=== PATIENT | female | born 1935 | race Caucasian/White ===

== ENCOUNTER 2022-12-21 14:51 | Inpatient (IN) | payer MEDICARE, OTHER ==
[~2022-12-21] VITALS: Ht 170.2 cm; Wt 68.2 kg
[2022-12-21 16:26] LABS: BASOPHILS % (AUTO) 0.7 % (0.0-2.0); EOSINOPHILS # (AUTO) 0.2 K/uL (0.0-0.7); EOSINOPHILS % (AUTO) 3.1 % (0.0-6.0); HEMATOCRIT 41 % (33-45); HEMOGLOBIN 13.7 g/dL (11.5-14.8); LYMPHOCYTES # (AUTO) 1.4 K/uL (0.8-4.8); LYMPHOCYTES % (AUTO) 24.9 % (20.0-44.0); MEAN CORPUSCULAR HEMOGLOBIN 32 PG (26.0-33.0); MEAN CORPUSCULAR HGB CONC 34 g/dl (31.0-36.0); MEAN CORPUSCULAR VOLUME 96 fL (82-100); MONOCYTES # (AUTO) 0.5 K/uL (0.1-1.30); MONOCYTES % (AUTO) 8.9 % (2.0-12.0); NEUTROPHILS # (AUTO) 3.6 K/uL (1.8-8.9); NEUTROPHILS % (AUTO) 62.4 % (43.0-81.0); PLATELET COUNT (AUTO) 419 K/uL (150-450); RED BLOOD CELL COUNT(AUTO) 4.23 MIL/uL (4.0-5.2); RED CELL DISTRIBUTION WIDTH 13.3 % (11.5-15.0); WHITE BLOOD COUNT (AUTO) 5.8 K/uL (4.3-11.0)
[2022-12-21 16:46] LABS: SERUM AMMONIA 2 umol/L (11-32)
[2022-12-21 16:47] LABS: CALCIUM, SERUM 9.9 mg/dL (8.5-10.1); CARBON DIOXIDE 27 mmol/L (21-32); CHLORIDE 105 mmol/L (98-107); CREATININE 0.9 mg/dL (0.6-1.3); GLUCOSE 103 mg/dL (74-106); POTASSIUM 4.1 mmol/L (3.5-5.1); SODIUM SERUM 140 mmol/L (136-145); UREA NITROGEN, BLOOD 26 mg/dL (7-18)
[2022-12-21] MEDS ORDERED: QUET25TA PO ×2 (16:52)
[2022-12-21] MEDS ORDERED: ACET-2605 PO (16:52)
[2022-12-21] MEDS ORDERED: ACET-868 PO (16:52)
[2022-12-21] MEDS ORDERED: SENN-261 PO (16:52)
[2022-12-21] MEDS ORDERED: BISA10SU11 RC (16:52)
[2022-12-21] MEDS ORDERED: MAGN400O6 PO (16:52)
[2022-12-21 16:53] LABS: ALANINE AMINOTRANSFERASE 29 U/L (12-78); ALBUMIN 3.8 g/dL (3.4-5.0); ALKALINE PHOSPHATASE 114 U/L (46-116); ASPARTATE AMINOTRANSFERASE 19 U/L (15-37); BILIRUBIN,DIRECT 0.1 mg/dL (0.0-0.2); BILIRUBIN,TOTAL 0.3 mg/dL (0.2-1.0); TOTAL PROTEIN, SERUM 7.8 g/dL (6.4-8.2)
[2022-12-21 16:54] LABS: ALCOHOL, BLOOD < 10 mg/dL (0-10)
[2022-12-21] MEDS ORDERED: ACETAMINOPHEN 325 MG TABLET PO PRN (18:30)
[2022-12-21] MEDS ORDERED: BISACODYL SUPP (10 MG) 10 MG/SUPP.RECT SUPP.RECT RC PRN (18:30)
[2022-12-21] MEDS ORDERED: ENOXAPARIN SODIUM 30 MG/0.3 ML DISP.SYRIN SQ SCH (18:30)
[2022-12-21] MEDS ORDERED: ONDANSETRON HCL/PF 4 MG/2 ML VIAL IVP PRN (18:30)
[2022-12-21] MEDS ORDERED: HYDROCODONE/APAP 5/325MG TABLET PO PRN (18:30)
[2022-12-21] MEDS ORDERED: Z GUARD REMEDY 4 OZ OINT TP PRN (18:30)
[2022-12-21] MEDS ORDERED: MAGNESIUM HYDROXIDE 30 ML UDC PO PRN (18:30)
[2022-12-21] MEDS ORDERED: MAG HYDROX/AL HYDROX/SIMETH 30 ML UDC PO PRN (18:30)
[2022-12-21 20:00] VITALS: BP 139/61; TEMP 97.7; O2SAT 93
[2022-12-21] MEDS: IV NS 0.9% 1,000 ML IV PRN (20:42)
[2022-12-21] MEDS: ENOXAPARIN SODIUM 40 MG/0.4 ML DISP.SYRIN SQ SCH (20:45)
[2022-12-21] MEDS: QUETIAPINE FUMARATE 25 MG TABLET PO SCH (21:35)
[2022-12-22] MEDS ORDERED: OLANZAPINE 10 MG VIAL IM ONE
[2022-12-22 06:06] LABS: APPEARANCE,URINE CLEAR (CLEAR); BILIRUBIN,URINE NEGATIVE (NEGATIVE); BLOOD, URINE NEGATIVE Ery/uL (NEGATIVE); COLOR,URINE YELLOW (YELLOW); KETONES,URINE NEGATIVE (NEGATIVE); LEUKOCYTE ESTERASE ,URINE NEGATIVE (NEGATIVE); NITRITE, URINE NEGATIVE (NEGATIVE); PROTEIN,URINE NEGATIVE (NEGATIVE); UGLUCOSE NEGATIVE (NEGATIVE); UROBILINOGEN,URINE 0.2 EU/dL (0.2)
[2022-12-22 06:21] LABS: AMPHETAMINE, URINE NEGATIVE (NEGATIVE); BARBITURATE, URINE NEGATIVE (NEGATIVE); BENZODIAZEPINE, URINE NEGATIVE (NEGATIVE); CANNABINOID, URINE NEGATIVE (NEGATIVE); COCCAINE, URINE NEGATIVE (NEGATIVE); OPIATE, URINE NEGATIVE (NEGATIVE); PHENCYCLIDINE SCREEN,URINE NEGATIVE (NEGATIVE)
[2022-12-22 07:30] VITALS: BP 152/75; TEMP 97.4; O2SAT 96
[2022-12-22] MEDS: QUETIAPINE FUMARATE 25 MG TABLET PO SCH ×2 (08:31→21:55)
[2022-12-22] MEDS: PANTOPRAZOLE 40 MG TABLET.DR PO SCH (08:31)
[2022-12-22] MEDS: SENNOSIDES 8.6 MG TABLET PO SCH (08:31)
[2022-12-22] MEDS: IV NS 0.9% 1,000 ML IV PRN (11:07)
[2022-12-22 16:00] VITALS: BP 154/63; TEMP 97.7; O2SAT 98
[2022-12-22] MEDS: ENOXAPARIN SODIUM 40 MG/0.4 ML DISP.SYRIN SQ SCH (21:57)
[2022-12-22 22:55] VITALS: BP 163/98; TEMP 97.9; O2SAT 92
[2022-12-23 07:50] LABS: CALCIUM, SERUM 9.7 mg/dL (8.5-10.1); CREATININE 0.6 mg/dL (0.6-1.3); POTASSIUM 3.6 mmol/L (3.5-5.1)
[2022-12-23 08:00] VITALS: BP 156/79; TEMP 97.9; O2SAT 98
[2022-12-23] MEDS: PANTOPRAZOLE 40 MG TABLET.DR PO SCH (08:07)
[2022-12-23] MEDS: QUETIAPINE FUMARATE 25 MG TABLET PO SCH ×2 (08:07→21:49)
[2022-12-23] MEDS: SENNOSIDES 8.6 MG TABLET PO SCH (08:07)
[2022-12-23] MEDS: IV NS 0.9% 1,000 ML IV PRN ×2 (10:32→22:59)
[2022-12-23 19:00] VITALS: BP 155/75; TEMP 98.8; O2SAT 95
[2022-12-23] MEDS: ENOXAPARIN SODIUM 40 MG/0.4 ML DISP.SYRIN SQ SCH (22:26)
[2022-12-24] MEDS: PANTOPRAZOLE 40 MG TABLET.DR PO SCH (07:35)
[2022-12-24 08:00] VITALS: BP 150/77; TEMP 98.3; O2SAT 96
[2022-12-24] MEDS: QUETIAPINE FUMARATE 25 MG TABLET PO SCH (09:03)
[2022-12-24] MEDS: SENNOSIDES 8.6 MG TABLET PO SCH (09:03)
[2022-12-24] MEDS: IV NS 0.9% 1,000 ML IV PRN (11:47)
[2022-12-24] MEDS ORDERED: PROSOURCE / PROSTAT (PYXIS) 30 ML UDC PO SCH (13:00)
[2022-12-24] MEDS ORDERED: ENSURE ENLIVE 237 ML LIQUID (VANILLA) PO SCH (17:00)
== END 2022-12-24 15:30 | DRG 92 ==
LOC: ER 15:00 → MED 18:26
DX: R26.89 Other abnormalities of gait and mobility (principal); F03.93 Unspecified dementia, unspecified severity, with mood disturbance; F03.94 Unspecified dementia, unspecified severity, with anxiety; F05 Delirium due to known physiological condition; R29.6 Repeated falls; E78.5 Hyperlipidemia, unspecified; F39 Unspecified mood [affective] disorder; F41.9 Anxiety disorder, unspecified; M19.90 Unspecified osteoarthritis, unspecified site; Z79.899 Other long term (current) drug therapy; I10 Essential (primary) hypertension; R79.89 Other specified abnormal findings of blood chemistry; Z78.1 Physical restraint status; S30.821A Blister (nonthermal) of abdominal wall, initial encounter; X58.XXXA Exposure to other specified factors, initial encounter; Y92.9 Unspecified place or not applicable; F29 Unspecified psychosis not due to a substance or known physiological condition
CPT/HCPCS: 36415; 70450-TC; 71045-TC; 80048-TC; 80076-TC; 82140-TC; 85025-TC; 87081-TC; 87086-TC; 97110-TC; 97116-TC; 97530-TC; A4223; G0378; G0480; J1650; J3490; J7030